=== PATIENT | female | born 1985 | race Caucasian/White ===

== ENCOUNTER 2023-12-01 10:17 | Day surgery (SDC) | payer BC, SELFPAY ==
[2023-12-01] VITALS (19 sets, daily range): BP systolic 98–128; BP diastolic 52–80; PULSE 66–97; RESP 12–20; TEMP 36.4–37; O2SAT 93–98; BMI 31.4
[2023-12-01] MEDS: SODIUM CHLORIDE 0.9 % (FLUSH) 10 ML SYRINGE IVF (10:55)
[2023-12-01] MEDS: PHENAZOPYRIDINE HCL 200 MG TABLET PO (10:55)
[2023-12-01] MEDS: LACTATED RINGERS 1000 ML 1,000 ML 100 ML IV ×3 (10:55→19:42)
[2023-12-01] MEDS: SCOPOLAMINE 1 MG/3 DAY PATCH 1 PATCH TRANSDERMA (11:00)
--- NOTE | 2023-12-01 11:36 | W.PM.H&PU ---
History & Physical Update History & Physical Update H&P Reviewed and patient assessed: No changes noted
[2023-12-01 11:38] LABS: Basophils Absolute Auto 0.06 K/uL (0.00-0.30); Basophils Percent Auto 0.7 % (0.0-3.0); Eosinophils Absolute Auto 0.05 K/uL (0.00-0.50); Eosinophils Percent Auto 0.6 % (0.0-7.0); Hemoglobin* 14.6 gm/dL (12.0-16.0); Immature Granulocytes Abs Auto 0.01 K/uL (0.00-0.30); Immature Granulocytes Pct Auto 0.1 %; Lymphocytes Absolute Auto 1.76 K/uL (0.90-2.90); Lymphocytes Percent Auto 20.6 % (20-44); Mean Corpuscular HGB Conc 32 gm/dL (32-36); Mean Corpuscular Hemoglobin 28 pg (26-34); Mean Corpuscular Volume 85 fL (80-100); Monocytes Percent Auto 6.1 % (0.0-11.0); Neutrophils Absolute Auto 6.15 K/uL (1.7-7.0); Neutrophils Percent Auto 71.9 % (42.0-72.0); Platelet Count* 282 K/uL (140-440); RDW Coefficient of Variation % 13.1 % (11.5-15.5); Red Blood Count 5.29 m/uL (4.00-5.20); White Blood Count* 8.55 K/uL (4.50-11.00)
[2023-12-01 11:39] LABS: Slide Review Reflex No
[2023-12-01 12:01] LABS: Ur HCG Qualitative* Negative (Negative)
[2023-12-01 12:04] LABS: Creatinine* 0.8 mg/dL (0.5-1.5); Est. Creatinine Clearance* 96.18; Estimated Glomerular Filt Rate 97 ml/min
[2023-12-01] MEDS: CEFAZOLIN 2 GM INJ IVP (12:23)
[2023-12-01] MEDS: HYDROmorphone 0.5 mg/0.5 ml inj IVP (15:08)
--- NOTE | 2023-12-01 15:14 | PM.GYNPRHY ---
Procedure Type of Hysterectomy: Total Laparoscopic Pre-op/Post-op diagnoses: Pre-Op/Post-Op Diagnoses Operation Date: 12/01/23 11:55 <No data on this case meets the specified criteria> Procedure: Procedures Operation Date: 12/01/23 11:55 Actual Procedure Side Surgeon p M/S-Total Laparoscopic Hysterectomy, Bilateral Salpingectomy, LYSIS OF ADHESIONS, Cystoscopy Bilateral Adrienne Sales MD Tunnel Miner: Love Rizo Estimated blood loss (mL): 50 Anesthesia Type: General and Local Complications: none Fluids: crystalloid Fluid amount (mL): 1,800 Urine output (mL): 50 Weight of Uterus: 3.457 oz Specimen: uterus, left tube and right tube Disposition: floor Narrative: Preoperative diagnosis: 38-year-old 3 para 3003 Postoperative diagnosis: Same Procedure: Mirena IUD removal, Total laparoscopic hysterectomy, bilateral salpingectomy, diagnostic cystoscopy. Anesthesia: General endotracheal, local Surgeon: Adrienne Sales MD Assist: Love Rizo MD Estimated blood loss: 50 mL. IV Fluid: 1800 mL Urine output: 50 mL Drains: Osman to gravity Specimen: Uterus and bilateral fallopian tubes to pathology. Findings: On exam under anesthesia: Normal appearing external genitalia. Normal appearing cervix with IUD appropriately protruding from cervical os. The uterus was retroverted, approximately 7 week size, mobile. No masses palpable. Adnexa without mass or fullness palpable. On laparoscopy: Uterus with nodularity from endometriosis lesion. Uterine vessels already appeared congested. Filmy adhesions of left ovary to left fallopian tube and colon. Bilateral fallopian tubes with evidence of transection from previous tubal ligation. Physiologic appearing bilateral ovaries and posterior cul-de-sac. Right ureter easily visualized intraabdominally. Normal appearing liver. Cystoscopy: The dome of the bladder was noted to be without injury and no evidence of any sutures from the vaginal cuff causing injury. Normal urine flow was noted through both ureteral orifices. Procedure: Vita was taken to the operating room where general anesthetic was found to be adequate. She was placed in the dorsal lithotomy position and an exam under anesthesia was performed with findings stated above. She was then prepped and draped in a normal sterile manner. A Osman catheter was placed. A bivalve speculum was placed in the vaginal canal. Ring forceps used to remove IUD prior to the hysterectomy. IUD removed intact and discarded. A long tenaculum clamp was placed on the anterior lip of the cervix, in the uterus sounded to 8 cm. A medium size VCare uterine manipulator was then placed. The Allis clamp and speculum were removed from the cervix. Attention was then turned to performing the laparoscopic portion of the procedure. All incisions were infiltrated with 0.25% Marcaine prior to incising the skin. A vertical, infraumbilical 5 mm incision was made. A 5 mm trocar was then placed under direct visualization. The abdomen was then insufflated with CO2 gas to a pressure of 15 mm of mercury. Two pelvic ports were then placed approximately 3-4 finger breaths medial to the ischial crests. The trocar in the RLQ = 5mm, LLq = 11mm. A 4th port was made in the patient's right lower quadrant, just superior medial to the left ASIS. A 5 mm Fios Kii port was inserted under direct visualization and without complication. The balloon on each of the 4 ports was inflated, holding each in place. These were placed under direct visualization. Attention was then turned to performing the hysterectomy. Both ureters were visualized in the normal position bilaterally. The left fallopian tube was grasped, dissected of the left ovary and removed with sequential pedicles using the dissecting, ligasure [place] tip dissecting forceps. Filmy adhesions were taken down tethering the left fallopian tube to to the pelvic side wall. The left side of the hysterectomy was performed using the ligasure dissecting forceps. The 1st pedicles were starting with the broad ligament that was cauterized and and bisected. In sequence show pedicles were formed to divide the utero-ovarian ligament. Then sequential pedicles were made through the broad ligament. The posterior leaf of the broad ligament was then divided and sequential pedicles carried down to the level of the VCare cup. The anterior leaf of the broad ligament was then divided down to the level of the anterior aspect of the VCare cup and a bladder flap created. The uterine vessels were then skeletonized. The uterine vessels were then cauterized and divided. Then excess tissue was cleared over the top of the VCare cup using the dissecting forceps. The right salpingectomy and right side of the hysterectomy were then performed in a similar manner. The Ligasure [employer] pen with the spatula attachment was then used to perform the colpotomy incising around the VCare cup. The uterus was removed and the fundus placed in the vaginal canal to maintain insufflation. The vaginal cuff was then reapproximated using 2-0 V lock suture in a running manner. All the pedicles and vaginal cuff were then closely visualized and hemostasis obtained with bipolar cautery using the LigaSure dissecting forceps or the [employer] pen with the spatula. The the uterus was removed from the vaginal canal and sent to pathology. The Osman catheter was briefly removed. A diagnostic cystoscopy was performed using normal saline as the insufflation medium. Findings noted from above. Phenazopyridine 200 mg PO was given in preop to visualize the urine more easily. A new Osman catheter was then replaced. Attention was then returned to the abdomen where hemostasis was verified. The CO2 pressure decreased to 8mmHG and hemostasis verified. The fascia in the LLQ incision was approximated with 0-Vicryl suture using the Keven Thomastiffany fascial closure device. This was closed under direct visualization with the laparoscope. All trocars were removed under direct visualization. CO2 gas was allowed to escape the infraumbilical port prior to its removal. All skin incisions were re-approximated using 4-0 Monocryl in a running subcuticular manner, Exophin skin adhesive gel and adhesive bandages placed. The patient tolerated this procedure well. Sponge, lap and instrument counts were correct x2 at the end of the procedure and the patient was taken to the recovery area in stable condition. The patient received 2gm IV ancef prior to the start of the procedure.
--- NOTE | 2023-12-01 15:20 | W.ANESCHARGE ---
Anesthesia Charges Start Date/Time Anesthesia Start Date: 12/01/23 Anesthesia Start Time: 12:08 Stop Date/Time Anesthesia Stop Date: 12/01/23 Anesthesia Stop Time: 14:48
[2023-12-01] MEDS: IBUPROFEN 600 MG TABLET PO (19:41)
--- NOTE | 2023-12-01 19:55 | PC.NURSE ---
End of shift [id number] - Pt arrived from PACU at approximately 1530. Pt drowsy, but able to follow direction. Reported discomfort in abdomen as 4/10 and refused pain medication during shift. Ice pack on surgical sites, lap sites x 4 open to air with no drainage noted. Pt tolerating RA and able to transition to regular diet/fluids with no report of nausea/vomiting. Family at bedside.
[2023-12-01] MEDS: ACETAMINOPHEN 325 MG TABLET 1000 MG PO (21:17)
[2023-12-01] MEDS: OXYCODONE 5 MG TABLET PO (21:17)
[2023-12-02 03:00] VITALS: BP 100/52; PULSE 57; RESP 16; TEMP 36.1; O2SAT 95
[2023-12-02] MEDS: IBUPROFEN 600 MG TABLET PO ×2 (03:04→08:05)
[2023-12-02] MEDS: ACETAMINOPHEN 325 MG TABLET 1000 MG PO (05:59)
[2023-12-02] MEDS: OXYCODONE 5 MG TABLET PO (05:59)
[2023-12-02 06:17] LABS: Basophils Percent Auto 0.2 % (0.0-3.0); Eosinophils Percent Auto 0.1 % (0.0-7.0); Hematocrit 39.2 % (33.0-51.0); Hemoglobin* 12.6 gm/dL (12.0-16.0); Immature Granulocytes Pct Auto 0.1 %; Mean Corpuscular HGB Conc 32 gm/dL (32-36); Mean Corpuscular Hemoglobin 28 pg (26-34); Mean Corpuscular Volume 87 fL (80-100); Monocytes Percent Auto 7.1 % (0.0-11.0); Neutrophils Percent Auto 76.5 % (42.0-72.0); Platelet Count* 264 K/uL (140-440); RDW Coefficient of Variation % 13.1 % (11.5-15.5); White Blood Count* 14.77 K/uL (4.50-11.00)
[2023-12-02 06:20] LABS: Slide Review Reflex No
--- NOTE | 2023-12-02 06:23 | PC.NURSE ---
[id number] Pt pleasant and cooperative, slept well during night, pain controlled with PO scheduled and prn pain medications. sinha removed at 2130, voided x1 this morning, 300cc, urine clear and dark orange color. ambulated halls x1 during the evening which pt tolerated very well, denies lightheaded/dizziness. lap sites x4 C/D/I, ice to abd during shift. denies N/V, tolerating PO intake. minimal vaginal bleeding.
[2023-12-02 06:32] LABS: Creatinine* 0.7 mg/dL (0.5-1.5); Est. Creatinine Clearance* 109.92; Estimated Glomerular Filt Rate 113 ml/min
[2023-12-02 07:00] VITALS: BP 107/43; PULSE 68; RESP 16; TEMP 36.3; O2SAT 97
[2023-12-02] MEDS: CITALOPRAM HYDROBROMIDE 20 MG TABLET 30 MG PO (08:06)
--- NOTE | 2023-12-02 08:15 | P.DS_ITS ---
DS: Providers Provider Time Seen by Provider: 08:15 Date Seen: 12/02/23 Primary care physician: Radha White PA-C Attending Physician on discharge: Adrienne Sales MD Date of Discharge: 12/02/23 DS: Diagnosis Discharge Diagnosis (1) Endometriosis: Status: Acute (2) Chronic constipation: Status: Acute (3) S/P laparoscopic hysterectomy: Status: Acute Problem details: Total laparoscopic hysterectomy with bilateral salpingectomy on 12/01/2023 [employer]IR[employer]ING [employer]-Discharge Summary Hospital Course Hospital Course Narrative: Patient is a 38 year old admitted on November for scheduled surgery: Laparoscopic total hysterectomy, bilateral salpingectomy, and cystoscopy. Indication for surgery: Pelvic pain and endometriosis. Intraoperative findings: On exam under anesthesia: Normal appearing external genitalia. Normal appearing cervix with IUD appropriately protruding from cervical os. The uterus was retroverted, approximately 7 week size, mobile. No masses palpable. Adnexa without mass or fullness palpable. On laparoscopy: Uterus with nodularity from endometriosis lesion. Uterine vessels already appeared congested. Filmy adhesions of left ovary to left fallopian tube and colon. Bilateral fallopian tubes with evidence of transection from previous tubal ligation. Physiologic appearing bilateral ovaries and posterior cul-de-sac. Right ureter easily visualized intraabdominally. Normal appearing liver. Cystoscopy: The dome of the bladder was noted to be without injury and no evidence of any sutures from the vaginal cuff causing injury. Normal urine flow was noted through both ureteral orifices. She had an uncomplicated surgery. Postoperative course has been uneventful. Vitals have been stable. She has remained afebrile. Today, on postoperative day 1, she reports the pain is well controlled. She has been able to ambulate Without difficulty. She is tolerating regular diet. She is passing flatus. Sinha catheter has been removed, and she is voiding without difficulty. Time Spent with Patient Time attestation: Total time spent providing and/or coordinating discharge services: Time spent: Less than 30 minutes [employer]IR[employer] - Exam Physical Exam: Vital signs: Temp Pulse Resp BP Pulse Ox O2 Del Method 97.0 F L 57 L 16 100/52 L 95 Room Air 12/02/23 03:00 12/02/23 03:00 12/02/23 03:00 12/02/23 03:00 12/02/23 03:00 12/02/23 03:00 Constitutional: Constitutional: no acute distress Routine HEENT Exam: Head: Present atraumatic, normal inspection and normocephalic Routine Neck Exam: NECK: Present supple and full ROM Routine Respiratory Exam: Respiratory: Present CTA bilaterally Routine Cardiovascular Exam: Cardiovascular: Present RRR Routine Abdominal Exam: Comments: Appropriately tender to palpation, no rebound, distension or guarding. Incision: clean, dry and intact. No erythema, breakdown, or discharge x 4 Routine Exam: Comments: No bleeding on pad. Detailed Lower Extremity Exam: Comments: SCDs in place. No lower extremity edema. Routine Neurological Exam: Neurological: Present alert, oriented X3 and CN II- XII intact Routine Psychiatric Exam: Psychiatric: Present normal affect [employer]IR[employer] - DS: Data Data Completed and Pending Labs on day of discharge: Labs from last 24 hours 12/02/23 12/01/23 12/01/23 06:04 11:50 11:28 WBC 14.77 H 8.55 RBC 4.50 5.29 H Hgb 12.6 14.6 Hct 39.2 45.0 MCV 87 85 MCH 28 28 MCHC 32 32 RDW Coeff of Alba 13.1 13.1 Plt Count 264 282 Neut % (Auto) 76.5 H 71.9 Lymph % (Auto) 16.0 L 20.6 Luna % (Auto) 7.1 6.1 Eos % (Auto) 0.1 0.6 Baso % (Auto) 0.2 0.7 Neut # (Auto) 11.30 H 6.15 Lymph # (Auto) 2.40 1.76 Luna # (Auto) 1.00 H 0.50 Eos # (Auto) 0.00 0.05 Baso # (Auto) 0.00 0.06 Abs Immat Gran (auto) 0.00 0.01 Imm/Tot Granulo (auto) 0.1 0.1 Creatinine 0.7 0.8 Estimated Creat Clear 109.92 96.18 Estimated GFR 113 97 HCG, Qual Cancelled Urine HCG, Qual Negative Blood Type A Positive Antibody Screen NEGATIVE Procedures Procedures: Procedures Operation Date: 12/01/23 11:55 Actual Procedure Side Surgeon p M/S-Laparoscopic Total ABDOMINAL Hysterectomy, Bilateral Salpingectomy, LYSIS OF ADHESIONS, Cystoscopy Bilateral Adrienne Sales MD Complications: none Discharge Plan Discharge Disposition: Home w/ Parent or Adult Discharging Surgeon: Adrienne Sales Follow-Up Appointment: Dr. Sales, [facility], December 14 @ 9:00 am Prescriptions: New docusate sodium 100 mg Capsule 100 mg PO BID PRN (Reason: Constipation) 30 Days Qty: 60 0RF ibuprofen 600 mg Tablet 600 mg PO Q6H PRN (Reason: pain) 30 Days Qty: 60 0RF simethicone 80 mg Tablet,Chewable 160 mg PO Q4H PRN (Reason: gas) 30 Days Qty: 60 0RF oxycodone 5 mg Tablet 5 mg PO Q6H PRN (Reason: Moderate Pain) 14 Days Qty: 15 0RF acetaminophen [Tylenol Extra Strength] 500 mg tablet 1,000 mg PO Q6H PRN30 Days Qty: 60 0RF No Action citalopram 20 mg tablet 30 mg PO QDAY Patient Instructions: Scopolamine (Absorbed through the skin) (Transderm Scop), Acetaminophen (By mouth), Ibuprofen (By mouth), Simethicone (By mouth), Lax ative, Stool Softeners (By mouth), Oxycodone, Rapid Release (By mouth), Salpingectomy (DC), Laparoscopic Hysterectomy (DC), Care After General Anesthesia (DC) Additional Instructions: LAPAROSCOPY POSTOPERATIVE INSTRUCTIONS ACTIVITY No heavy lifting/pushing/pulling for 4-6 weeks. Do not lift anything more than about 15 lbs (such as laundry, groceries, children, pets), vacuum, push heavy doors or grocery carts, etc. You may climb stairs as tolerated. Do not put anything in the vagina for 6-8 weeks after surgery unless otherwise instructed by your doctor (including tampons, douching, sexual intercourse, etc). No driving for about 2 weeks after surgery, while you are taking narcotic pain medication, or until you feel that you are ready. Practice checking your blind spot and stepping hard on the brake. Avoid sitting or lying in bed for more than 2 hours at a time while you are awake to reduce your risk of blood clots. You may return to work when directed by your physician. Please contact your doctor if you need any return to work letters or medical leave paperwork to be completed. WOUND CARE You will have 4 small incisions on your abdomen. There will be dissolvable stit ches under your skin that do not need to be removed. Shower daily after surgery. Clean your incision with mild antibacterial soap and water. Pat your incision dry with a clean towel. No tub baths until wound is completely healed. Wash your hands frequently, especially before touching your incision, changing any dressings, after using the restroom, and before eating. PAIN MANAGEMENT Take your oral pain medication as needed. You should be taking Ibuprofen 600mg every 6 hours with 650 mg of Tylenol every 6 hours. You can take these together every six hours or alternate them every 3 hours. You should then take the oxycodone as needed if you have breakthrough pain on top of the Tylenol and Ibuprofen. Some pain medications can cause constipation so you should take a stool softener (i.e. colace/senna) while you are on these medications. You may also take milk of magnesia or Miralax for constipation. WHAT TO EXPECT AT HOME Recovery from surgery is generally 2-4 weeks, but sometimes longer for more strenuous activity. It is normal to be very tired during this time. It is normal to have some drainage or a small amount of vaginal bleeding after surgery which may last up to 6 weeks. You may go home with a sinha catheter in your bladder. If so, you will need to follow up for a nurse visit in 7-10 days for removal. You will most likely experience gas pain, abdominal swelling, or shoulder pain for 24-72 hours after surgery. This is from the carbon dioxide gas put into your abdomen to better visualize your organs. A warm shower, heating pad, and/or walking may help. WHEN TO CALL YOUR DOCTOR : Fever (>100.4?F or 38.0?C) or chills. Incision problems such as redness, warmth, swelling, or foul-smelling drainage. Severe nausea or persistent vomiting. Bright red vaginal bleeding (soaking >1 pad/hour) or foul-smelling vaginal drainage. Severe pain not relieved with pain medication. Pain and swelling in your legs, especially if it is only on one side and not the other. Pain with urination, cloudy urine, or foul-smelling urine. Or if you have any other problems or questions. CALL 911 OR GO TO THE EMERGENCY ROOM IF YOU HAVE: Any shortness of breath, difficulty breathing, or chest pain. Follow-up: Adrienne Sales MD [Staff Physician] - 12/15/23 9:00 am ([facility] for follow-up.) Radha White PA-C [Primary Care Provider] - Discharge Orders: Discharge Order (Routine); Ordered 12/02/23 Ordered By: Adrienne Sales
--- NOTE | 2023-12-02 10:41 | PC.NURSE ---
Discharge note: Pt up moving independently throughout her room without difficulty. Voiding regularly and has good PO intake. She states pain is well controlled and rates 3/10. Scheduled Ibuprofen given as well as PRN Oxy and Tylenol. Pt is also utilizing an ice pack at her op site. Lap sites x2 well approximated and MDM SR without drainage. Pt states she has scant bloody vaginal discharge. She was discharged to home via wheelchair in the care of her family at 0953. Pt and her verbalized understanding of discharge instructions and follow up appointments.
--- NOTE | 2023-12-08 10:09 | PC.NURSE ---
LATE ENTRY ORDER - PATIENT ADMITTED M/S RECOVERY 12/01/23 AT 1500 S/P TOTAL LAP HYST, BSO, CYSTOSCOPY
== END 2023-12-02 09:53 | disposition home or self-care (01) ==
LOC: OR 10:19 → MEDSURG 10:21
PROVIDERS: PCP Physician Assistant; Visit Provider Obstetrics & Gynecology
PROC: 0UT94ZZ Resection of Uterus, Percutaneous Endoscopic Approach (ICD-10-PCS; CPT 58571; principal; 2023-12-01 11:45)
DX: N80.00 Endometriosis of the uterus, unspecified (principal); N92.0 Excessive and frequent menstruation with regular cycle; N83.8 Other noninflammatory disorders of ovary, fallopian tube and broad ligament; R10.2 Pelvic and perineal pain; K59.09 Other constipation; G89.29 Other chronic pain
CPT/HCPCS: 58571; 58301; 00840; 36415; 81025; 82565; 84703; 85025; 86850; 86900; 86901; 88307; A9270; J0330; J0690; J1100; J1170; J1200; J1630; J1885; J2405; J2704; J3010; J3490; J7120